=== PATIENT | male | born 1945 | race Caucasian/White ===

== ENCOUNTER 2024-12-06 14:43 | Observation (INO) | payer MEDICARE ==
[2024-12-06] MEDS ORDERED: Ondansetron PF 4 MG/2 ML Vial IVP PRN (15:22)
[2024-12-06] MEDS ORDERED: Nitroglycerin 0.4 MG TAB (25 Tab Bottle) SL PRN (15:22)
[2024-12-06] MEDS ORDERED: Acetaminophen 325 MG TAB PO PRN (15:22)
[2024-12-06] MEDS ORDERED: Senokot S 8.6-50 MG TAB PO PRN (15:22)
[2024-12-06] MEDS ORDERED: Guaifenesin DM 100-10/5 ML UDCUP PO PRN (15:22)
[2024-12-06] MEDS ORDERED: hydrALAZINE 20 MG/ML VIAL SLOW IVP PRN (15:34)
[2024-12-06 16:05] VITALS: BMI 29.0
[2024-12-06 16:25] LABS: Anion Gap 12 mmol/L (10-20); BUN (Urea Nitrogen) 20 mg/dL (8.4-25.7); Calc. Creatinine Clearance 52 mL/min (70-130); Calcium 8.8 mg/dL (7.8-10.44); Carbon Dioxide 24 mmol/L (23-31); Chloride 106 mmol/L (98-107); Estimated GFR 44; Glucose 187 mg/dL (83-110); Magnesium 1.9 mg/dL (1.6-2.6); Potassium 4.4 mmol/L (3.5-5.1); Sodium 138 mmol/L (136-145)
[2024-12-06 16:30] LABS: Troponin I Less than 0.010 ng/mL (< 0.028)
[2024-12-06 16:40] LABS: #Basophils 0.06 10x3/uL (0.0-0.2); #Eosinophils 0.12 10x3/uL (0.0-0.5); #Neutrophils 3.87 10x3/uL (1.5-8.4); %Eosinophils 2.1 % (0.0-6.0); %Lymphocytes 19.5 % (18.0-47.0); %Monocytes 10.4 % (0.0-10.0); %Neutrophils 66.8 % (40.0-75.0); Mean Corpuscular HGB CONC 33.3 g/dL (32.0-36.0); Mean Corpuscular Hemoglobin 30.1 pg (27.0-33.0); Mean Corpuscular Volume 90.3 fL (81.2-95.1); Mean Platelet Volume 9.3 fL (7.4-10.4); Platelet Count 213 10x3/uL (150-450); RBC Distribution Width 13.4 % (11.5-14.5); Red Blood Cell (RBC) Count 4.32 10x6/uL (4.32-5.72); White Blood Cell (WBC) Count 5.79 10x3/uL (3.5-10.5)
[2024-12-06] MEDS: Sodium Chloride 0.9% 1,000 ML IV SCH (16:48)
[2024-12-06] MEDS: Aspirin 81 mg Enteric Coated Tablet PO SCH (16:48)
[2024-12-06] MEDS: Carvedilol 6.25 MG TAB PO SCH (16:48)
[2024-12-06 18:57] LABS: Troponin I Less than 0.010 ng/mL (< 0.028)
[2024-12-06] MEDS ORDERED: Electrolyte Replacement Protocol 1 EACH FS PRN (19:07)
[2024-12-06] MEDS ORDERED: POTASSIUM GLUCONATE 600 MG PO SCH (21:00)
[2024-12-06] MEDS ORDERED: Non-Formulary Medication 1 EACH (Magnesium [Magnesium] 200 MG Tablet) PO SCH (21:00)
[2024-12-06] MEDS ORDERED: Famotidine/PF 20 mg/2ml Vial SLOW IVP SCH (22:00)
[2024-12-06] MEDS ORDERED: diphenhydrAMINE 50 MG/ML VIAL IVP SCH (22:00)
[2024-12-06] MEDS: Magnesium 2 GM/50 ML(in water) 2 GM in Premix 1 BAG IVPB SCH (22:02)
[2024-12-06] MEDS: Tamsulosin HCl 0.4 MG CAP PO SCH (22:08)
[2024-12-06] MEDS: Multivitamin w/Zinc Stress 1 TAB PO SCH (22:09)
[2024-12-06] MEDS: Simvastatin 10 MG TAB PO SCH (22:09)
[2024-12-06] MEDS: methylPREDNISolone Sod Succ/PF 125 MG/2 ML VIAL IVP SCH (22:09)
[2024-12-06] MEDS: Zinc Sulfate 220 MG CAP PO SCH (22:55)
[2024-12-07 04:22] LABS: #Basophils 0.03 10x3/uL (0.0-0.2); #Eosinophils Less than 0.03 10x3/uL (0.0-0.5); #Monocytes 0.09 10x3/uL (0.0-1.1); #Neutrophils 4.93 10x3/uL (1.5-8.4); %Basophils 0.5 % (0.0-2.0); %Eosinophils 0.2 % (0.0-6.0); %Lymphocytes 9.1 % (18.0-47.0); %Monocytes 1.6 % (0.0-10.0); %Neutrophils 88.1 % (40.0-75.0); Hematocrit 40.5 % (38.8-50.0); Hemoglobin 13.7 g/dL (13.5-17.5); Mean Corpuscular HGB CONC 33.8 g/dL (32.0-36.0); Mean Corpuscular Hemoglobin 29.9 pg (27.0-33.0); Mean Corpuscular Volume 88.4 fL (81.2-95.1); Mean Platelet Volume 9.1 fL (7.4-10.4); Platelet Count 213 10x3/uL (150-450); RBC Distribution Width 13.4 % (11.5-14.5); Red Blood Cell (RBC) Count 4.58 10x6/uL (4.32-5.72)
[2024-12-07 04:42] LABS: Phosphorus 2.6 mg/dL (2.3-4.7)
[2024-12-07 04:44] LABS: ALT (SGPT) 24 U/L (8-55); AST (SGOT) 17 U/L (5-34); Albumin 3.5 g/dL (3.4-4.8); Alkaline Phosphatase 58 U/L (40-110); Anion Gap 15 mmol/L (10-20); BUN (Urea Nitrogen) 23 mg/dL (8.4-25.7); Bilirubin, Total 0.5 mg/dL (0.2-1.2); Calc. Creatinine Clearance 57 mL/min (70-130); Calcium 9.2 mg/dL (7.8-10.44); Carbon Dioxide 22 mmol/L (23-31); Cardiac Risk 3.4 (Less than 4.5); Chloride 107 mmol/L (98-107); Cholesterol 155 mg/dl (< 200 Desired); Estimated GFR 49; Globulin 3.1 g/dL (2.4-3.5); Glucose 176 mg/dL (83-110); HDL Cholesterol 46 mg/dL (>60 Neg Risk); LDL Cholesterol, Calculated 100 mg/dL; Magnesium 2.1 mg/dL (1.6-2.6); Potassium 4.5 mmol/L (3.5-5.1); Protein, Total 6.6 g/dL (5.8-8.1); Sodium 139 mmol/L (136-145); Triglycerides 44 mg/dL (Less than 150)
[2024-12-07] MEDS: methylPREDNISolone Sod Succ/PF 125 MG/2 ML VIAL IVP SCH (06:56)
[2024-12-07] MEDS: Sodium Chloride 0.9% 1,000 ML IV SCH (06:56)
[2024-12-07] MEDS: Carvedilol 6.25 MG TAB PO SCH (06:56)
[2024-12-07] MEDS: Aspirin 81 mg Enteric Coated Tablet PO SCH (06:57)
[2024-12-07] MEDS ORDERED: Multivit, Therapeutic 1 TAB PO SCH (09:00)
[2024-12-07] MEDS ORDERED: Enoxaparin 40 MG (0.4 mL) SYRINGE SC SCH (09:00)
[2024-12-07] MEDS ORDERED: Nitroglycerin 50 MG/250 ML BOT 250 ML ONE (10:48)
[2024-12-07] MEDS ORDERED: Adenosine 6 mg (2 mL) VIAL ONE (10:48)
[2024-12-07] MEDS ORDERED: Heparin 10,000 UNITS/ 10 ML VIAL ONE ×2 (10:48→12:38)
[2024-12-07] MEDS ORDERED: Midazolam HCl 2 mg/2 ml Vial ONE ×2 (10:48→12:00)
[2024-12-07] MEDS ORDERED: Lidocaine 1% (PF) 30 ML VIAL ONE (10:48)
[2024-12-07] MEDS ORDERED: fentaNYL 50 mcg/mL 1 mL Vial ONE (10:48)
[2024-12-07] MEDS ORDERED: TICAGRELOR 90 MG TABLET ONE (12:39)
[2024-12-07] MEDS ORDERED: Protamine Sulfate 50 MG/5 ML VIAL ONE (12:55)
[2024-12-07] MEDS ORDERED: Iopamidol 300 61% 100 ML VIAL FS ONE (13:37)
[2024-12-07] MEDS ORDERED: Sodium Chloride 0.9% 200 ML IV PRN (13:53)
[2024-12-07] MEDS ORDERED: Nitroglycerin 0.4 MG TAB (25 Tab Bottle) SL PRN (13:53)
[2024-12-07] MEDS ORDERED: Acetaminophen/Codeine 30-300mg Tablet PO PRN ×2 (13:53)
[2024-12-07] MEDS: Ranolazine ER 500 MG TAB PO SCH (20:33)
[2024-12-08] MEDS: Pantoprazole 40 MG DR.TAB PO SCH (09:38)
[2024-12-08] MEDS: Isosorbide Mononitrate 30 MG ER.TAB PO SCH (09:38)
[2024-12-08] MEDS: Calcium Carbonate 600 MG + Vit D TAB PO SCH (09:38)
[2024-12-08 09:44] VITALS: TEMP 97.8
[2024-12-08 17:30] VITALS: BP 130/64
== END 2024-12-08 11:47 | disposition home or self-care (01) ==
LOC: CSHTELE 14:44 → INTOOBSV 14:44
PROVIDERS: ADMIT Hospitalist; ATTEND Internal Medicine Cardiovascular Disease
PROC: 4A023N7 Measurement of Cardiac Sampling and Pressure, Left Heart, Percutaneous Approach (ICD-10-PCS; principal; 2024-12-07)
DX: I25.110 Atherosclerotic heart disease of native coronary artery with unstable angina pectoris (principal); I24.9 Acute ischemic heart disease, unspecified; I11.0 Hypertensive heart disease with heart failure; E78.5 Hyperlipidemia, unspecified; N40.0 Benign prostatic hyperplasia without lower urinary tract symptoms; Z95.1 Presence of aortocoronary bypass graft; Z90.49 Acquired absence of other specified parts of digestive tract; Z98.890 Other specified postprocedural states; Z91.041 Radiographic dye allergy status; Z88.8 Allergy status to other drugs, medicaments and biological substances; Z79.82 Long term (current) use of aspirin; Z79.899 Other long term (current) drug therapy
CPT/HCPCS: 71045; 80048; 80053; 80061; 83735 ×2; 84100; 84484 ×2; 85025 ×2; 85347 ×2; 92978; 92979; 93005; 93459; 96374; 96375; 96376; C1753; C1760 ×2; C1769; C1887; G0378 ×3; J1644; J2250; J2720; J2919 ×2; J3010; J3475; J7030 ×3; Q9967; 36415; 93010; 99152; 99153; J0153